=== PATIENT | female | born 1985 | race African-American/Black ===

== ENCOUNTER 2020-07-12 03:58 | Inpatient (IN) | payer OTHER ==
[2020-07-10 09:15] VITALS: BMI 28.8
[2020-07-12] MEDS ORDERED: BUPIVACAINE LIPOSOME/PF (EXPAREL) 266 MG/20 ML VIAL ONE (07:15)
[2020-07-12] MEDS ORDERED: EPHEDRINE SULFATE/0.9% NACL/PF 50 MG/10 ML SYRINGE NR ONE (07:23)
[2020-07-12] MEDS ORDERED: PROPOFOL 20 ML ONE (07:23)
[2020-07-12] MEDS ORDERED: SUCCINYLCHOLINE CHLORIDE 200 MG/10 ML SYRINGE ONE (07:23)
[2020-07-12] MEDS ORDERED: MIDAZOLAM HCL 2 MG/2 ML SINGLE DOSE VIAL ONE ×3 (07:24→07:47)
[2020-07-12] MEDS ORDERED: ROCURONIUM BROMIDE 50 MG/5 ML SYRINGE ONE ×2 (07:24→10:17)
[2020-07-12] MEDS ORDERED: LIDOCAINE HCL/PF 2% SDV 5ML VIAL ONE ×2 (07:25→12:33)
[2020-07-12] MEDS ORDERED: HEPARIN NA (PORCINE) 5,000 UNITS/ML 1ML VIAL ONE (07:52)
[2020-07-12] MEDS ORDERED: ceFAZolin SODIUM 1 GM VIAL IVPB ONE (08:30)
[2020-07-12] MEDS ORDERED: ONDANSETRON 4 MG/2 ML VIAL ONE (08:35)
[2020-07-12] MEDS ORDERED: ceFAZolin SODIUM 1 GM VIAL ONE ×2 (08:35→17:52)
[2020-07-12] MEDS ORDERED: DEXAMETHASONE SOD PHOSPHATE 4 MG/1 ML VIAL ONE (08:35)
[2020-07-12] MEDS ORDERED: TRANEXAMIC ACID 1000 MG/10 ML VIAL ONE (08:37)
[2020-07-12] MEDS ORDERED: SEVOFLURANE 250 ML BTL ONE (09:38)
[2020-07-12] MEDS ORDERED: ACETAMINOPHEN 325 MG TABLET (FP) PO PRN (10:38)
[2020-07-12] MEDS ORDERED: IBUPROFEN 800 MG/8 ML IJ IVPB PRN ×2 (10:38→19:00)
[2020-07-12] MEDS ORDERED: ONDANSETRON 4 MG/2 ML VIAL IVPUSH PRN ×2 (10:38)
[2020-07-12] MEDS ORDERED: BISACODYL 5 MG TABLET.DR (FP) PO PRN (10:38)
[2020-07-12] MEDS ORDERED: NEOSTIGMINE METHYLSULFATE 0.5 MG/1 ML - 10 ML MDV ONE (11:31)
[2020-07-12] MEDS ORDERED: GLYCOPYRROLATE 0.2 MG/1 ML VIAL ONE (11:31)
[2020-07-12 13:20] LABS: HEMATOCRIT 27.9 % (32.4-45.2); HEMOGLOBIN 8.5 GM/dL (10.7-15.3); MCH 22.9 pg (25.7-33.7); MCHC 30.4 g/dl (32.0-36.0); MEAN CELL VOLUME 75.1 fl (80-96); MEAN PLT VOLUME 7.9 fl (7.5-11.1); PLATELET COUNT 256 K/MM3 (134-434); RBC 3.71 M/mm3 (3.60-5.2); RDW 24.3 % (11.6-15.6); WHITE BLOOD COUNT 15.1 K/mm3 (4.0-10.0)
[2020-07-12] MEDS ORDERED: ACETAMINOPHEN INJECTION 100 ML IVPB ONE (15:27)
[2020-07-12] MEDS: ACETAMINOPHEN 1000 MG/100 ML VIAL (NON FORMULARY) IVPB SCH ×3 (15:30→21:09)
[2020-07-12] MEDS: oxyCODONE HCL 5 MG TABLET PO PRN (16:41)
[2020-07-12] MEDS: LACTATED RINGERS SOLUTION 1,000 ML IV SCH (17:14)
[2020-07-12] MEDS ORDERED: DEXTROSE 5%-WATER - 50 ML IVPB ONE (17:52)
[2020-07-12] MEDS: CEFAZOLIN 1 GM in DEXTROSE 5%-WATER - 50 ML IVPB SCH (17:57)
[2020-07-12] MEDS ORDERED: CEFAZOLIN 1 GM/D5W 1 GM/50 ML BAG IVPB SCH (18:00)
[2020-07-13] MEDS ORDERED: ceFAZolin SODIUM 1 GM VIAL ONE ×2 (01:27→09:20)
[2020-07-13] MEDS ORDERED: DEXTROSE 5%-WATER - 50 ML IVPB ONE ×2 (01:28→09:20)
[2020-07-13] MEDS: oxyCODONE HCL 5 MG TABLET PO PRN ×3 (01:33→22:00)
[2020-07-13] MEDS: LACTATED RINGERS SOLUTION 1,000 ML IV SCH ×2 (01:35→15:59)
[2020-07-13] MEDS: CEFAZOLIN 1 GM in DEXTROSE 5%-WATER - 50 ML IVPB SCH ×2 (01:35→09:54)
[2020-07-13] MEDS: ACETAMINOPHEN 1000 MG/100 ML VIAL (NON FORMULARY) IVPB SCH ×2 (03:52→11:51)
[2020-07-13 08:33] LABS: HEMATOCRIT 24.1 % (32.4-45.2); HEMOGLOBIN 7.2 GM/dL (10.7-15.3); MCH 22.6 pg (25.7-33.7); MCHC 29.9 g/dl (32.0-36.0); MEAN CELL VOLUME 75.6 fl (80-96); MEAN PLT VOLUME 8.9 fl (7.5-11.1); PLATELET COUNT 210 K/MM3 (134-434); RBC 3.19 M/mm3 (3.60-5.2); RDW 24.1 % (11.6-15.6); WHITE BLOOD COUNT 11.2 K/mm3 (4.0-10.0)
[2020-07-13 09:18] LABS: BLOOD UREA NITROGEN 6.1 mg/dL (7-18); CALCIUM 7.9 mg/dL (8.5-10.1)
[2020-07-13 09:21] LABS: CREATININE 0.7 mg/dL (0.55-1.3)
[2020-07-13] MEDS: ENOXAPARIN NA (PORCINE) 40 MG/0.4 ML DISP.SYRIN SQ SCH (09:54)
[2020-07-13] MEDS: FERROUS SO4 325 MG TABLET (FP) PO SCH (09:55)
[2020-07-13] MEDS ORDERED: IBUPROFEN 600 MG TABLET (FP) PO PRN (10:38)
[2020-07-13] MEDS: SIMETHICONE 80 MG TAB.CHEW (FP) PO PRN ×2 (15:54→22:00)
[2020-07-13] MEDS ORDERED: BISACODYL 10 MG SUPP.RECT PR PRN (18:55)
[2020-07-13] MEDS ORDERED: ACETAMINOPHEN 325 MG TABLET (FP) PO PRN (20:00)
[2020-07-14] MEDS: oxyCODONE HCL 5 MG TABLET PO PRN ×4 (02:12→21:55)
[2020-07-14] MEDS: ENOXAPARIN NA (PORCINE) 40 MG/0.4 ML DISP.SYRIN SQ SCH (09:19)
[2020-07-14] MEDS: FERROUS SO4 325 MG TABLET (FP) PO SCH (09:19)
[2020-07-14] MEDS: ACETAMINOPHEN 500 MG TABLET (FP) PO PRN ×2 (09:20→20:05)
[2020-07-14 11:14] LABS: BASO % 0.5 % (0-2.0); EOS % 0.1 % (0-4.5); HEMATOCRIT 23.8 % (32.4-45.2); HEMOGLOBIN 7.4 GM/dL (10.7-15.3); MCH 23.4 pg (25.7-33.7); MCHC 30.9 g/dl (32.0-36.0); MEAN CELL VOLUME 75.8 fl (80-96); MONO % 4.8 % (3.8-10.2); NEUT % 86.6 % (42.8-82.8); PLATELET COUNT 202 K/MM3 (134-434); RBC 3.14 M/mm3 (3.60-5.2); RDW 25.5 % (11.6-15.6); WHITE BLOOD COUNT 17.5 K/mm3 (4.0-10.0)
[2020-07-14 11:32] LABS: EPI CELLS 24 /uL (0-25.1); HYALINE CASTS 1 /uL (0-3.1); PH,URINE 6.5 (5.0-8.0); URINE APPEARANCE CLEAR; URINE BACTERIA 60 /uL (0-1359); URINE BILIRUBIN NEGATIVE (NEGATIVE); URINE COLOR YELLOW; URINE GLUCOSE (UA) NEGATIVE (NEGATIVE); URINE KETONE 2+ (NEGATIVE); URINE LEUK ESTERASE TRACE (NEGATIVE); URINE NITRITE NEGATIVE (NEGATIVE); URINE PROTEIN 1+ (NEGATIVE); URINE RBC 1160 /uL (0-23.9); URINE UROBILINOGEN 0.2 mg/dL (0.2-1.0); URINE WBC 17 /uL (0-25.8)
[2020-07-14 12:38] LABS: ANISOCYTOSIS 2+; MACROCYTOSIS 1+; OVALOCYTE 1+; PLATELET ESTIMATE NORMAL
[2020-07-14] MEDS ORDERED: DEXTROSE 5%-WATER - 50 ML IVPB ONE (16:27)
[2020-07-14] MEDS ORDERED: PIPERACILLIN/TAZOBACTAM 3.375 GM VIAL IVPB ONE (16:27)
[2020-07-14] MEDS: PIPERACILLIN/TAZOB 3.375 GM 3.375 GM in DEXTROSE 5%-WATER - 50 ML IVPB SCH (17:25)
[2020-07-14] MEDS: LACTATED RINGERS SOLUTION 1,000 ML IV SCH (17:25)
[2020-07-14] MEDS ORDERED: PIPERACILLIN/TAZOB 3.375 GM 3.375 GM in DEXTROSE 5%-WATER - 50 ML IVPB SCH (18:00)
[2020-07-15] MEDS ORDERED: DEXTROSE 5%-WATER - 50 ML IVPB ONE ×3 (01:11→19:32)
[2020-07-15] MEDS ORDERED: PIPERACILLIN/TAZOBACTAM 3.375 GM VIAL IVPB ONE ×3 (01:11→19:32)
[2020-07-15] MEDS: PIPERACILLIN/TAZOB 3.375 GM 3.375 GM in DEXTROSE 5%-WATER - 50 ML IVPB SCH ×3 (02:09→19:38)
[2020-07-15] MEDS: oxyCODONE HCL 5 MG TABLET PO PRN (05:33)
[2020-07-15 07:40] LABS: BASO % 0.4 % (0-2.0); EOS % 0.5 % (0-4.5); HEMATOCRIT 21.2 % (32.4-45.2); LYMPH % 10.5 % (8-40); MCH 23.6 pg (25.7-33.7); MCHC 31.3 g/dl (32.0-36.0); MEAN CELL VOLUME 75.2 fl (80-96); MEAN PLT VOLUME 8.5 fl (7.5-11.1); NEUT % 82.6 % (42.8-82.8); PLATELET COUNT 168 K/MM3 (134-434); RBC 2.82 M/mm3 (3.60-5.2); RDW 26.4 % (11.6-15.6); WHITE BLOOD COUNT 12.6 K/mm3 (4.0-10.0)
[2020-07-15 08:43] LABS: HEMOGLOBIN 6.6 GM/dL (10.7-15.3)
[2020-07-15 10:40] LABS: ALBUMIN 2.6 g/dl (3.4-5.0); BILIRUBIN,TOTAL 0.4 mg/dL (0.2-1); BLOOD UREA NITROGEN 3.5 mg/dL (7-18); CALCIUM 7.9 mg/dL (8.5-10.1); CREATININE 0.8 mg/dL (0.55-1.3); TOT PROT 5.9 g/dl (6.4-8.2)
[2020-07-15] MEDS: ENOXAPARIN NA (PORCINE) 40 MG/0.4 ML DISP.SYRIN SQ SCH (10:57)
[2020-07-15] MEDS: FERROUS SO4 325 MG TABLET (FP) PO SCH (10:57)
[2020-07-15] MEDS: DOCUSATE SODIUM 100 MG CAPSULE (FP) PO PRN (10:57)
[2020-07-15] MEDS: SIMETHICONE 80 MG TAB.CHEW (FP) PO PRN (10:57)
[2020-07-15] MEDS: LACTATED RINGERS SOLUTION 1,000 ML IV SCH (11:53)
[2020-07-15] MEDS: ACETAMINOPHEN 500 MG TABLET (FP) PO PRN (11:55)
[2020-07-15] MEDS: IBUPROFEN 600 MG TABLET (FP) PO PRN (11:55)
[2020-07-15] MEDS ORDERED: POTASSIUM CHLORIDE TABS 20 MEQ TABLET.ER (FP) PO ONE (18:45)
[2020-07-16] MEDS ORDERED: DEXTROSE 5%-WATER - 50 ML IVPB ONE ×3 (00:25→17:13)
[2020-07-16] MEDS ORDERED: PIPERACILLIN/TAZOBACTAM 3.375 GM VIAL IVPB ONE ×3 (00:25→17:13)
[2020-07-16] MEDS: IBUPROFEN 600 MG TABLET (FP) PO PRN ×2 (00:29→08:45)
[2020-07-16] MEDS: ACETAMINOPHEN 500 MG TABLET (FP) PO PRN ×2 (00:29→08:46)
[2020-07-16] MEDS: PIPERACILLIN/TAZOB 3.375 GM 3.375 GM in DEXTROSE 5%-WATER - 50 ML IVPB SCH ×3 (01:21→17:24)
[2020-07-16] MEDS ORDERED: PCA PUMP NR ONE (03:43)
[2020-07-16 07:57] LABS: BASO % 0.7 % (0-2.0); EOS % 1.8 % (0-4.5); HEMATOCRIT 22.9 % (32.4-45.2); HEMOGLOBIN 7.4 GM/dL (10.7-15.3); LYMPH % 20.5 % (8-40); MCH 24.9 pg (25.7-33.7); MCHC 32.1 g/dl (32.0-36.0); MEAN CELL VOLUME 77.6 fl (80-96); MEAN PLT VOLUME 8.6 fl (7.5-11.1); PLATELET COUNT 186 K/MM3 (134-434); RBC 2.95 M/mm3 (3.60-5.2); RDW 25.3 % (11.6-15.6); WHITE BLOOD COUNT 8.1 K/mm3 (4.0-10.0)
[2020-07-16] MEDS: SIMETHICONE 80 MG TAB.CHEW (FP) PO PRN (08:44)
[2020-07-16] MEDS: DOCUSATE SODIUM 100 MG CAPSULE (FP) PO PRN (08:44)
[2020-07-16] MEDS: ENOXAPARIN NA (PORCINE) 40 MG/0.4 ML DISP.SYRIN SQ SCH (09:47)
[2020-07-16] MEDS: FERROUS SO4 325 MG TABLET (FP) PO SCH (09:47)
[2020-07-16] MEDS: LACTATED RINGERS SOLUTION 1,000 ML IV SCH ×2 (11:15→17:21)
[2020-07-17] MEDS ORDERED: PIPERACILLIN/TAZOBACTAM 3.375 GM VIAL IVPB ONE ×3 (00:36→17:38)
[2020-07-17] MEDS ORDERED: DEXTROSE 5%-WATER - 50 ML IVPB ONE ×3 (00:36→17:38)
[2020-07-17] MEDS: PIPERACILLIN/TAZOB 3.375 GM 3.375 GM in DEXTROSE 5%-WATER - 50 ML IVPB SCH ×3 (01:05→17:57)
[2020-07-17] MEDS: FERROUS SO4 325 MG TABLET (FP) PO SCH (10:01)
[2020-07-17] MEDS: IBUPROFEN 600 MG TABLET (FP) PO PRN ×2 (10:01→23:01)
[2020-07-17] MEDS: ACETAMINOPHEN 500 MG TABLET (FP) PO PRN ×2 (10:02→23:02)
[2020-07-17] MEDS: ENOXAPARIN NA (PORCINE) 40 MG/0.4 ML DISP.SYRIN SQ SCH (10:03)
[2020-07-18] MEDS ORDERED: DEXTROSE 5%-WATER - 50 ML IVPB ONE ×2 (01:57→09:15)
[2020-07-18] MEDS ORDERED: PIPERACILLIN/TAZOBACTAM 3.375 GM VIAL IVPB ONE ×2 (01:57→09:15)
[2020-07-18] MEDS: PIPERACILLIN/TAZOB 3.375 GM 3.375 GM in DEXTROSE 5%-WATER - 50 ML IVPB SCH ×2 (03:04→09:18)
[2020-07-18 08:01] VITALS: BP 140/93; PULSE 63; TEMP 97.9
[2020-07-18] MEDS ORDERED: PT OWN MED DRAWER 7, Y5N ONE (09:15)
[2020-07-18] MEDS: ENOXAPARIN NA (PORCINE) 40 MG/0.4 ML DISP.SYRIN SQ SCH (09:19)
[2020-07-18] MEDS: FERROUS SO4 325 MG TABLET (FP) PO SCH (09:19)
[2020-07-18 09:23] LABS: BASO % 1.1 % (0-2.0); EOS % 4.2 % (0-4.5); HEMATOCRIT 23.9 % (32.4-45.2); HEMOGLOBIN 7.6 GM/dL (10.7-15.3); LYMPH % 29.2 % (8-40); MCH 24.9 pg (25.7-33.7); MCHC 31.8 g/dl (32.0-36.0); MEAN PLT VOLUME 8.9 fl (7.5-11.1); MONO % 7.3 % (3.8-10.2); NEUT % 58.2 % (42.8-82.8); PLATELET COUNT 259 K/MM3 (134-434); RBC 3.06 M/mm3 (3.60-5.2); RDW 25.8 % (11.6-15.6)
[2020-07-18 09:49] LABS: BLOOD UREA NITROGEN 6.1 mg/dL (7-18); CALCIUM 8.2 mg/dL (8.5-10.1)
[2020-07-18 09:53] LABS: CREATININE 0.8 mg/dL (0.55-1.3)
[2020-07-18 11:01] LABS: ANISOCYTOSIS 3+; MACROCYTOSIS 1+; OVALOCYTE 2+; PLATELET ESTIMATE NORMAL
== END 2020-07-18 13:13 | disposition home or self-care (01) | DRG 743 ==
LOC: JASUSAT 03:58 → J2C 10:38 → EDSTATUS 14:00 → J8W 16:20
PROVIDERS: ADMIT Specialist; ATTEND Specialist
PROC: 0UB90ZZ Excision of Uterus, Open Approach (ICD-10-PCS; principal; 2020-07-13)
PROC: 0DNW0ZZ Release Peritoneum, Open Approach (ICD-10-PCS; 2020-07-13)
DX: D25.9 Leiomyoma of uterus, unspecified (principal); K66.0 Peritoneal adhesions (postprocedural) (postinfection); R10.2 Pelvic and perineal pain; D50.9 Iron deficiency anemia, unspecified; N92.0 Excessive and frequent menstruation with regular cycle
CPT/HCPCS: 36415; 36430; 71045-TC-FY; 74177-TC; 80048; 80053; 81003; 85025; 85027; 86850; 86891; 86900; 86901; 86922; 87086; 88304-TC; 88305-TC; 94760; C9803; J0131; J1644; P9058; U0003; U0005